=== PATIENT | male | born 1985 | race Caucasian/White ===

== ENCOUNTER 2020-08-19 17:55 | Inpatient (IN) ==
[2020-08-19] MEDS ORDERED: *HR* Heparin 10,000 UNIT/10 ML VIAL ONE ×2 (17:59→19:23)
[2020-08-19] MEDS ORDERED: ISOVUE-370 200 ML INFUS..BTL ONE ×3 (17:59→19:53)
[2020-08-19] MEDS ORDERED: Nitroglycerin 1,000 MCG/10 ML VIAL IV ONE ×2 (17:59→19:23)
[2020-08-19] MEDS ORDERED: *HR* Metoprolol 5 MG/5 ML VIAL IVP ONE ×4 (17:59→23:04)
[2020-08-19] MEDS ORDERED: 0.9 % Sodium Chloride 2,000 ML ONE ×2 (17:59→19:23)
[2020-08-19] MEDS ORDERED: Heparin 1,000 UNITS/500 mL 500 ML ONE ×3 (17:59→20:10)
[2020-08-19] MEDS ORDERED: 0.9 % Sodium Chloride 1,000 ML ONE (18:04)
[2020-08-19 18:14] LABS: Basophils % 0.1 %; Hematocrit 45.3 % (37.5-50.1); Hemoglobin 15.3 g/dL (12.9-16.9); Immature Granulocytes % 0.5 % (0-4); Lymphocytes % 6.9 %; Mean Corpuscular HGB Conc 33.8 g/dL (31.6-35.5); Mean Platelet Volume 10.7 fL (9.4-12.4); Monocytes # 1.2 K/mcL (0.0-1.3); Monocytes % 8.5 %; Neutrophils # 12.1 K/mcL (1.6-8.9); Platelet Count 214 K/mcL (140-400); Red Blood Count 5.46 M/mcL (4.19-5.50); Red Cell Distribution Width 13.2 % (11.5-14.5); White Blood Count 14.4 K/mcL (4.3-11.1)
[2020-08-19] MEDS ORDERED: 0.9 % Sodium Chloride 1,000 ML IVC ONE (18:18)
[2020-08-19 18:39] LABS: BUN/Creatinine Ratio 13 (6-26); Blood Urea Nitrogen 14 mg/dL (6-20); Calcium 9.6 mg/dL (8.6-10.3); Carbon Dioxide 27 mEq/L (23-29); Chloride 98 mEq/L (98-107); Glucose 167 mg/dL (70-105); Osmolality,Calculated 286 (280-300); Potassium 3.3 mEq/L (3.5-5.1); Sodium 136 mEq/L (136-145); eGFR For African Americans > 60 (> 60); eGFR For Non-African Americans > 60 (> 60)
[2020-08-19] MEDS ORDERED: Aspirin 81 MG TAB.CHEW PO ONE (18:39)
[2020-08-19] MEDS ORDERED: *HR* Heparin 5,000 UNIT/ML VIAL IVP PRN ×2 (18:40)
[2020-08-19] MEDS ORDERED: *HR* Heparin 5,000 UNIT/ML VIAL IVP ONE (18:40)
[2020-08-19] MEDS ORDERED: Heparin 25,000UNIT/250ML 1/2NS 25,000 UNIT/250 ML IV.SOLN IVC SCH (18:45)
[2020-08-19 18:55] LABS: D-Dimer 529 ng/mLFEU (0-500)
[2020-08-19 18:59] LABS: Heparin anti-factor XA UFH < 0.04 IU/mL (0.30-0.70); INR 1.4; Prothrombin Time 15.7 Seconds (9.4-12.1)
[2020-08-19] MEDS ORDERED: *HR* Midazolam HCl 2 MG/2 ML VIAL ONE (19:47)
[2020-08-19] MEDS ORDERED: *HR* FentaNYL (PF) 100 MCG/2 ML VIAL ONE (19:47)
[2020-08-19] MEDS ORDERED: Tirofiban 12.5 MG/250ML 12.5 MG/250 ML BAG ONE (19:57)
[2020-08-19] MEDS ORDERED: Furosemide 40 MG/4 ML VIAL ONE (19:59)
[2020-08-19] MEDS ORDERED: niCARdipine 0 MG/0 ML MLS IVC ONE (20:13)
[2020-08-19] MEDS ORDERED: *HR* Nitroprusside 50 MG VIAL IVC ONE (20:14)
[2020-08-19] MEDS ORDERED: D5% in Water 250 ML ONE (20:14)
[2020-08-19] MEDS ORDERED: *HR* Ticagrelor 90 MG TABLET ONE (20:27)
[2020-08-19 20:46] LABS: Adenovirus Not Detected (Not Detect); Bordetella Pertussis Not Detected (Not Detect); Chlamydophila pneumoniae Not Detected (Not Detect); Coronavirus 229E Not Detected (Not Detect); Coronavirus HKU1 Not Detected (Not Detect); Coronavirus NL63 Not Detected (Not Detect); Coronavirus OC43 Not Detected (Not Detect); Human Metapneumovirus Not Detected (Not Detect); Human Rhinovirus/Enterovirus DETECTED (Not Detect); Influenza A Subtype 2009 H1 Not Detected (Not Detect); Influenza B Not Detected (Not Detect); Mycoplasma pneumoniae Not Detected (Not Detect); Parainfluenza Virus 1 Not Detected (Not Detect); Parainfluenza Virus 2 Not Detected (Not Detect); Parainfluenza Virus 3 Not Detected (Not Detect); Parainfluenza Virus 4 Not Detected (Not Detect); Respiratory Syncytial Virus Not Detected (Not Detect); SARS-CoV-2 Not Detected (Not Detect)
[2020-08-19] MEDS ORDERED: Perflutren Lipid Microsphere 1.3 ML in 0.9 % Sodium Chloride 8.7 ML IVP PRN (20:58)
[2020-08-19] MEDS ORDERED: Tirofiban 12.5 MG/250ML 12.5 MG/250 ML BAG IVC SCH (21:00)
[2020-08-19 21:48] LABS: Bilirubin,Urine Negative (Negative); Blood,Urine Negative (Negative); Clarity,Urine Clear (Clear); Color,Urine Colorless (Yellow); Glucose,Urine (UA) Normal (Normal); Ketones,Urine Negative (Negative); Leukocyte Esterase,Urine Negative (Negative); Nitrite,Urine Negative (Negative); Protein,Urine Negative (Neg-Trace); Specific Gravity,Urine 1.021 (1.010-1.025); Urobilinogen,Urine Normal (Normal)
[2020-08-19] MEDS ORDERED: *HR* LORazepam 2 MG/ML VIAL IVP ONE (21:56)
[2020-08-19] MEDS: GuaiFENesin/Codeine Oral Soln 5 ML UDC PO PRN (23:31)
[2020-08-20] MEDS ORDERED: *HR* FentaNYL (PF) 100 MCG/2 ML VIAL IVP ONE (00:36)
[2020-08-20] MEDS ORDERED: Acetaminophen IV 1,000 MG/100 ML BAG IVPB ONE (00:57)
[2020-08-20] MEDS ORDERED: cefTRIAXone 1,000 MG in 0.9 % Sodium Chloride Mini Bag 100 ML IVPB ONE (00:57)
[2020-08-20 01:33] LABS: ABG Base Excess 1 mEq/L (-2 to 3); ABG HCO3 23 mEq/L (21-27); ABG Oxygen Saturation 95 % (95-98); ABG PCO2 30 mmHg (35-45); ABG PH 7.49 pH Units (7.32-7.45); ABG PO2 66 mmHg (85-104); ABG TCO2 24 mEq/L (20-26)
[2020-08-20 02:12] LABS: Basophils % 0.1 %; Hematocrit 45.4 % (37.5-50.1); Hemoglobin 15.6 g/dL (12.9-16.9); Immature Granulocytes % 0.4 % (0-4); Lymphocytes # 0.9 K/mcL (0.6-4.6); Lymphocytes % 6.5 %; Mean Corpuscular HGB Conc 34.4 g/dL (31.6-35.5); Mean Corpuscular Hemoglobin 28.4 pg (28.0-33.3); Mean Corpuscular Volume 82.7 fL (83.0-100.0); Mean Platelet Volume 10.8 fL (9.4-12.4); Monocytes # 1.3 K/mcL (0.0-1.3); Platelet Count 237 K/mcL (140-400); Red Blood Count 5.49 M/mcL (4.19-5.50); Red Cell Distribution Width 13.1 % (11.5-14.5); White Blood Count 14.3 K/mcL (4.3-11.1)
[2020-08-20 02:21] LABS: BUN/Creatinine Ratio 15 (6-26); Blood Urea Nitrogen 13 mg/dL (6-20); Calcium 8.3 mg/dL (8.6-10.3); Carbon Dioxide 24 mEq/L (23-29); Chloride 99 mEq/L (98-107); Glucose 130 mg/dL (70-105); Osmolality,Calculated 278 (280-300); Potassium 3.8 mEq/L (3.5-5.1); Sodium 133 mEq/L (136-145); eGFR For African Americans > 60 (> 60); eGFR For Non-African Americans > 60 (> 60)
[2020-08-20] MEDS ORDERED: Isovue-370 500 ML BOTTLE IVP ONE (02:36)
[2020-08-20] MEDS: Doxycycline 100 MG in 0.9 % Sodium Chloride Mini Bag 100 ML IVPB SCH ×2 (05:18→17:57)
[2020-08-20 09:14] LABS: Albumin 3.4 g/dL (3.5-5.7); Albumin/Globulin Ratio 1.1 (1.1-2.2); Bilirubin,Direct 0.4 mg/dL (0.0-0.2); Bilirubin,Total 1.4 mg/dL (0.3-1.0); Chol/HDL Ratio 4.8 (0-4.9); Globulin 3.1 g/dL (2.4-3.5); Total Protein 6.5 g/dL (6.4-8.9)
[2020-08-20] MEDS ORDERED: Furosemide 40 MG/4 ML VIAL IVP ONE (09:14)
[2020-08-20] MEDS: *HR* Ticagrelor 90 MG TABLET PO SCH ×2 (09:15→21:07)
[2020-08-20] MEDS: Aspirin Enteric Coated 81 MG Tablet PO SCH (09:15)
[2020-08-20] MEDS ORDERED: *HR* Metoprolol 5 MG/5 ML VIAL IVP ONE (09:48)
[2020-08-20] MEDS ORDERED: lisinopriL 5 MG TABLET PO SCH (11:00)
[2020-08-20] MEDS ORDERED: Perflutren Lipid Microsphere 1.3 ML in 0.9 % Sodium Chloride 8.7 ML IVP PRN (11:07)
[2020-08-20] MEDS: Furosemide 20 MG/2 ML VIAL IVP SCH ×2 (11:22→21:06)
[2020-08-20 14:14] LABS: INR 1.5; Prothrombin Time 16.8 Seconds (9.4-12.1)
[2020-08-20] MEDS ORDERED: *HR* Warfarin 5 MG TABLET PO ONE (18:00)
[2020-08-20] MEDS ORDERED: Warfarin perPT PO PRN (18:00)
[2020-08-20] MEDS: *HR* Enoxaparin 80 MG/0.8 ML SYRINGE SQ SCH (18:38)
[2020-08-21] MEDS: Doxycycline 100 MG in 0.9 % Sodium Chloride Mini Bag 100 ML IVPB SCH ×2 (04:53→18:52)
[2020-08-21] MEDS: *HR* Enoxaparin 80 MG/0.8 ML SYRINGE SQ SCH ×2 (04:55→18:53)
[2020-08-21 05:10] LABS: VBG Ionized Calcium 1.02 mmol/L (1.15-1.35)
[2020-08-21 05:15] LABS: Basophils % 0.2 %; Eosinophils % 0.1 %; Hematocrit 41.2 % (37.5-50.1); Hemoglobin 14.2 g/dL (12.9-16.9); Immature Granulocytes % 0.2 % (0-4); Lymphocytes # 1.5 K/mcL (0.6-4.6); Lymphocytes % 14.4 %; Mean Corpuscular HGB Conc 34.5 g/dL (31.6-35.5); Mean Corpuscular Hemoglobin 28.4 pg (28.0-33.3); Mean Corpuscular Volume 82.4 fL (83.0-100.0); Mean Platelet Volume 10.9 fL (9.4-12.4); Monocytes # 0.9 K/mcL (0.0-1.3); Monocytes % 8.5 %; Platelet Count 239 K/mcL (140-400); Red Cell Distribution Width 13.2 % (11.5-14.5); Segmented Neutrophils % 76.6 %; White Blood Count 10.4 K/mcL (4.3-11.1)
[2020-08-21 05:17] LABS: INR 1.5; Prothrombin Time 17.6 Seconds (9.4-12.1)
[2020-08-21 05:35] LABS: Alanine Aminotransferase 21 Units/L (7-52); Albumin 3.3 g/dL (3.5-5.7); Albumin/Globulin Ratio 0.9 (1.1-2.2); Alkaline Phosphatase 61 Units/L (34-104); Aspartate Amino Transferase 28 Units/L (13-39); BUN/Creatinine Ratio 19 (6-26); Bilirubin,Total 1.1 mg/dL (0.3-1.0); Blood Urea Nitrogen 15 mg/dL (6-20); Calcium 8.7 mg/dL (8.6-10.3); Carbon Dioxide 27 mEq/L (23-29); Chloride 97 mEq/L (98-107); Globulin 3.5 g/dL (2.4-3.5); Glucose 122 mg/dL (70-105); Magnesium 1.8 mg/dL (1.6-2.6); Osmolality,Calculated 282 (280-300); Phosphorous 1.8 mg/dL (2.7-4.5); Sodium 135 mEq/L (136-145); Total Protein 6.8 g/dL (6.4-8.9); eGFR For African Americans > 60 (> 60); eGFR For Non-African Americans > 60 (> 60)
[2020-08-21] MEDS ORDERED: Potassium Chloride Elixir 20 MEQ/15 ML UDC PO ONE ×2 (05:55→12:00)
[2020-08-21] MEDS: Calcium Gluconate 1gm/50mL 1 GM/50 ML BAG IVPB SCH ×2 (06:12→08:15)
[2020-08-21] MEDS: carvediloL 6.25 MG TABLET PO SCH ×2 (08:15→18:46)
[2020-08-21] MEDS: cefTRIAXone 1,000 MG in Water for inj. (sterile) 10 ML IVP SCH (08:16)
[2020-08-21] MEDS: *HR* Ticagrelor 90 MG TABLET PO SCH ×2 (08:16→20:43)
[2020-08-21] MEDS: Aspirin Enteric Coated 81 MG Tablet PO SCH (08:16)
[2020-08-21] MEDS: Sacubitril/Valsartan 24/26 MG 1 TABLET PO SCH ×2 (08:18→20:05)
[2020-08-21] MEDS: Furosemide 20 MG/2 ML VIAL IVP SCH ×2 (08:41→20:43)
[2020-08-21] MEDS ORDERED: lisinopriL 5 MG TABLET PO SCH (09:00)
[2020-08-21] MEDS ORDERED: Morphine Sulfate 2 MG/ML SYRINGE IVP ONE (09:09)
[2020-08-21] MEDS: Pantoprazole 40 MG VIAL IVP SCH (11:38)
[2020-08-21] MEDS: Colchicine 0.6 MG TABLET PO SCH ×2 (11:38→20:43)
[2020-08-21 14:50] LABS: Troponin I 11.43 ng/mL (< 0.04)
[2020-08-21] MEDS ORDERED: *HR* Warfarin 5 MG TABLET PO ONE (18:00)
[2020-08-22] MEDS: Sacubitril/Valsartan 24/26 MG 1 TABLET PO SCH ×2 (01:19→12:06)
[2020-08-22 04:53] LABS: INR 2.1; Prothrombin Time 23.9 Seconds (9.4-12.1)
[2020-08-22] MEDS: Doxycycline 100 MG in 0.9 % Sodium Chloride Mini Bag 100 ML IVPB SCH (06:50)
[2020-08-22] MEDS: *HR* Enoxaparin 80 MG/0.8 ML SYRINGE SQ SCH (06:51)
[2020-08-22 09:00] LABS: BUN/Creatinine Ratio 19 (6-26); Blood Urea Nitrogen 16 mg/dL (6-20); Calcium 8.7 mg/dL (8.6-10.3); Carbon Dioxide 26 mEq/L (23-29); Chloride 99 mEq/L (98-107); Glucose 119 mg/dL (70-105); Osmolality,Calculated 282 (280-300); Potassium 3.2 mEq/L (3.5-5.1); Sodium 135 mEq/L (136-145); eGFR For African Americans > 60 (> 60); eGFR For Non-African Americans > 60 (> 60)
[2020-08-22] MEDS: *HR* Ticagrelor 90 MG TABLET PO SCH ×2 (09:11→20:49)
[2020-08-22] MEDS: Aspirin Enteric Coated 81 MG Tablet PO SCH (09:11)
[2020-08-22] MEDS: Colchicine 0.6 MG TABLET PO SCH (09:11)
[2020-08-22] MEDS: Pantoprazole 40 MG VIAL IVP SCH (09:12)
[2020-08-22] MEDS: Furosemide 20 MG/2 ML VIAL IVP SCH (09:12)
[2020-08-22] MEDS: cefTRIAXone 1,000 MG in Water for inj. (sterile) 10 ML IVP SCH (09:12)
[2020-08-22] MEDS ORDERED: *HR* Warfarin 2.5 MG TABLET PO ONE (18:00)
[2020-08-22] MEDS ORDERED: Metoprolol XL (24 HR) Succ 25 MG TAB.ER.24H PO SCH (21:00)
[2020-08-23 00:37] LABS: Hematocrit 41.6 % (37.5-50.1); Hemoglobin 14.1 g/dL (12.9-16.9); Mean Corpuscular HGB Conc 33.9 g/dL (31.6-35.5); Mean Corpuscular Hemoglobin 27.8 pg (28.0-33.3); Mean Corpuscular Volume 82.1 fL (83.0-100.0); Mean Platelet Volume 10.4 fL (9.4-12.4); Platelet Count 254 K/mcL (140-400); Red Blood Count 5.07 M/mcL (4.19-5.50); Red Cell Distribution Width 13.3 % (11.5-14.5); White Blood Count 10.3 K/mcL (4.3-11.1)
[2020-08-23 00:51] LABS: INR 3.1; Prothrombin Time 35.1 Seconds (9.4-12.1)
[2020-08-23 00:58] LABS: Alanine Aminotransferase 25 Units/L (7-52); Albumin 3.3 g/dL (3.5-5.7); Albumin/Globulin Ratio 0.9 (1.1-2.2); Alkaline Phosphatase 64 Units/L (34-104); Aspartate Amino Transferase 28 Units/L (13-39); BUN/Creatinine Ratio 16 (6-26); Bilirubin,Direct 0.2 mg/dL (0.0-0.2); Bilirubin,Indirect 0.4 mg/dL (0.0-1.0); Bilirubin,Total 0.6 mg/dL (0.3-1.0); Blood Urea Nitrogen 14 mg/dL (6-20); Carbon Dioxide 24 mEq/L (23-29); Chloride 102 mEq/L (98-107); Globulin 3.6 g/dL (2.4-3.5); Glucose 105 mg/dL (70-105); Magnesium 1.9 mg/dL (1.6-2.6); Osmolality,Calculated 281 (280-300); Phosphorous 2.4 mg/dL (2.7-4.5); Potassium 3.7 mEq/L (3.5-5.1); Sodium 135 mEq/L (136-145); Total Protein 6.9 g/dL (6.4-8.9); eGFR For African Americans > 60 (> 60); eGFR For Non-African Americans > 60 (> 60)
[2020-08-23] MEDS ORDERED: Acetaminophen 325 MG TABLET PO PRN (01:59)
[2020-08-23] MEDS: GuaiFENesin/Codeine Oral Soln 5 ML UDC PO PRN (02:49)
[2020-08-23] MEDS: Sacubitril/Valsartan 24/26 MG 1 TABLET PO SCH ×2 (02:51→11:55)
[2020-08-23] MEDS: *HR* Ticagrelor 90 MG TABLET PO SCH (08:53)
[2020-08-23] MEDS: Aspirin Enteric Coated 81 MG Tablet PO SCH (08:54)
[2020-08-23] MEDS: cefTRIAXone 1,000 MG in Water for inj. (sterile) 10 ML IVP SCH (08:55)
[2020-08-23] MEDS: Pantoprazole 40 MG VIAL IVP SCH (08:56)
[2020-08-23] MEDS ORDERED: Furosemide 20 MG TABLET PO SCH (09:00)
[2020-08-23] MEDS ORDERED: Colchicine 0.6 MG TABLET PO SCH ×2 (09:00→21:00)
[2020-08-23] MEDS ORDERED: Metoprolol XL (24 HR) Succ 25 MG TAB.ER.24H PO SCH (09:00)
[2020-08-23 11:00] VITALS: BP 103/72
== END 2020-08-23 13:07 | disposition home or self-care (01) | DRG 174 ==
LOC: ICNU 17:55 → EMEROOARM 17:55 → ICNU 19:39 → SUATTDRO 21:26 → 2NNU 08-21 12:20
PROVIDERS: ADMIT Internal Medicine Cardiovascular Disease; ATTEND Internal Medicine

== ENCOUNTER 2020-08-24 17:54 | Observation (INO) ==
[2020-08-24 19:08] LABS: INR 3.5; Prothrombin Time 39.4 Seconds (9.4-12.1)
[2020-08-24 19:10] LABS: Basophils % 0.3 %; Eosinophils # 0.3 K/mcL (0.0-0.6); Eosinophils % 2.8 %; Hematocrit 41.1 % (37.5-50.1); Immature Granulocytes % 0.4 % (0-4); Lymphocytes # 1.6 K/mcL (0.6-4.6); Lymphocytes % 13.9 %; Mean Corpuscular HGB Conc 32.8 g/dL (31.6-35.5); Mean Corpuscular Hemoglobin 27.6 pg (28.0-33.3); Mean Corpuscular Volume 83.9 fL (83.0-100.0); Mean Platelet Volume 10.1 fL (9.4-12.4); Monocytes # 1.1 K/mcL (0.0-1.3); Monocytes % 9.4 %; Neutrophils # 8.6 K/mcL (1.6-8.9); Platelet Count 320 K/mcL (140-400); Red Cell Distribution Width 13.3 % (11.5-14.5); Segmented Neutrophils % 73.2 %; White Blood Count 11.8 K/mcL (4.3-11.1)
[2020-08-24 19:11] LABS: Activated Partial Thrombo Time 38.9 Seconds (26.0-36.0); Hemoglobin 13.5 g/dL (12.9-16.9)
[2020-08-24 19:23] LABS: BUN/Creatinine Ratio 15 (6-26); Blood Urea Nitrogen 12 mg/dL (6-20); Calcium 8.4 mg/dL (8.6-10.3); Carbon Dioxide 24 mEq/L (23-29); Chloride 100 mEq/L (98-107); Glucose 99 mg/dL (70-105); Osmolality,Calculated 276 (280-300); Potassium 3.4 mEq/L (3.5-5.1); Sodium 133 mEq/L (136-145); eGFR For African Americans > 60 (> 60); eGFR For Non-African Americans > 60 (> 60)
[2020-08-24 19:30] LABS: Troponin I 3.97 ng/mL (< 0.04)
[2020-08-24] MEDS ORDERED: Ondansetron 4 MG/2 ML VIAL IVP PRN (21:35)
[2020-08-24] MEDS ORDERED: Naloxone 0.4 MG/ML INJ IVP PRN (21:35)
[2020-08-24] MEDS: Sacubitril/Valsartan 24/26 MG 1 TABLET PO SCH (22:18)
[2020-08-24] MEDS: *HR* Ticagrelor 90 MG TABLET PO SCH (22:18)
[2020-08-24] MEDS ORDERED: Nitroglycerin 0.4 MG TAB.SUBL SL PRN (22:20)
[2020-08-25 05:29] LABS: Basophils % 0.2 %; Eosinophils # 0.3 K/mcL (0.0-0.6); Eosinophils % 2.4 %; Hematocrit 39.6 % (37.5-50.1); Hemoglobin 13.1 g/dL (12.9-16.9); Immature Granulocytes % 0.5 % (0-4); Lymphocytes # 1.7 K/mcL (0.6-4.6); Lymphocytes % 15.1 %; Mean Corpuscular HGB Conc 33.1 g/dL (31.6-35.5); Mean Corpuscular Hemoglobin 27.5 pg (28.0-33.3); Monocytes # 0.9 K/mcL (0.0-1.3); Monocytes % 8.6 %; Platelet Count 309 K/mcL (140-400); Red Blood Count 4.77 M/mcL (4.19-5.50); Red Cell Distribution Width 13.4 % (11.5-14.5); Segmented Neutrophils % 73.2 %
[2020-08-25 05:48] LABS: Prothrombin Time 44.9 Seconds (9.4-12.1)
[2020-08-25 05:50] LABS: BUN/Creatinine Ratio 19 (6-26); Blood Urea Nitrogen 15 mg/dL (6-20); Calcium 8.5 mg/dL (8.6-10.3); Carbon Dioxide 27 mEq/L (23-29); Chloride 103 mEq/L (98-107); Glucose 105 mg/dL (70-105); Osmolality,Calculated 285 (280-300); Potassium 3.7 mEq/L (3.5-5.1); Sodium 137 mEq/L (136-145); eGFR For African Americans > 60 (> 60); eGFR For Non-African Americans > 60 (> 60)
[2020-08-25 07:11] VITALS: BP 104/68
[2020-08-25] MEDS: *HR* Ticagrelor 90 MG TABLET PO SCH (08:33)
[2020-08-25] MEDS: Sacubitril/Valsartan 24/26 MG 1 TABLET PO SCH (08:33)
[2020-08-25] MEDS ORDERED: Metoprolol XL (24 HR) Succ 25 MG TAB.ER.24H PO SCH (09:00)
[2020-08-25] MEDS ORDERED: Aspirin Enteric Coated 81 MG Tablet PO SCH (09:00)
[2020-08-25] MEDS ORDERED: Colchicine 0.6 MG TABLET PO SCH (09:00)
[2020-08-25] MEDS ORDERED: Warfarin perPT PO PRN (18:00)
== END 2020-08-25 11:13 | disposition home or self-care (01) ==
LOC: EMEROOARM 17:54 → 2ANU 17:54 → SUATTDRO 20:53 → 2ANU 21:34
PROVIDERS: ADMIT Internal Medicine; ATTEND Internal Medicine

== ENCOUNTER 2020-11-12 12:35 | Observation (INO) ==
[2020-11-12] MEDS ORDERED: 0.9 % Sodium Chloride 500 ML IVC ONE (12:38)
[2020-11-12 13:15] LABS: Basophils % 0.1 %; Eosinophils # 0.2 K/mcL (0.0-0.6); Eosinophils % 2.4 %; Hematocrit 45.3 % (37.5-50.1); Hemoglobin 14.7 g/dL (12.9-16.9); Immature Granulocytes % 0.1 % (0-4); Lymphocytes # 1.5 K/mcL (0.6-4.6); Lymphocytes % 20.9 %; Mean Corpuscular HGB Conc 32.5 g/dL (31.6-35.5); Mean Corpuscular Hemoglobin 28.3 pg (28.0-33.3); Mean Corpuscular Volume 87.3 fL (83.0-100.0); Mean Platelet Volume 10.6 fL (9.4-12.4); Monocytes # 0.6 K/mcL (0.0-1.3); Monocytes % 8.7 %; Neutrophils # 4.8 K/mcL (1.6-8.9); Platelet Count 177 K/mcL (140-400); Red Blood Count 5.19 M/mcL (4.19-5.50); Red Cell Distribution Width 14.5 % (11.5-14.5); Segmented Neutrophils % 67.8 %
[2020-11-12 13:26] LABS: INR 1.1; Prothrombin Time 12.4 Seconds (9.4-12.1)
[2020-11-12 13:42] LABS: BUN/Creatinine Ratio 14 (6-26); Blood Urea Nitrogen 14 mg/dL (6-20); Calcium 9.5 mg/dL (8.6-10.3); Carbon Dioxide 27 mEq/L (23-29); Chloride 102 mEq/L (98-107); Glucose 82 mg/dL (70-105); Osmolality,Calculated 286 (280-300); Potassium 3.8 mEq/L (3.5-5.1); Sodium 138 mEq/L (136-145); Troponin I < 0.03 ng/mL (< 0.04); eGFR For African Americans > 60 (> 60); eGFR For Non-African Americans > 60 (> 60)
[2020-11-12] MEDS ORDERED: Ondansetron 4 MG/2 ML VIAL IVP PRN (15:39)
[2020-11-12] MEDS ORDERED: Naloxone 0.4 MG/ML INJ IVP PRN (15:39)
[2020-11-12] MEDS ORDERED: Nitroglycerin 0.4 MG TAB.SUBL SL PRN (15:44)
[2020-11-12] MEDS: Sacubitril/Valsartan 24/26 MG 1 TABLET PO SCH (17:24)
[2020-11-12] MEDS ORDERED: *HR* Heparin 5,000 UNIT/ML VIAL SQ SCH (18:00)
[2020-11-12] MEDS: *HR* Ticagrelor 90 MG TABLET PO SCH (20:36)
[2020-11-12] MEDS ORDERED: Metoprolol XL (24 HR) Succ 25 MG TAB.ER.24H PO SCH (21:00)
[2020-11-13] MEDS ORDERED: Famotidine 20 MG/2 ML VIAL IVP ONE (00:47)
[2020-11-13] MEDS ORDERED: methylPREDNISolone 125 MG/2 ML VIAL IVP ONE (00:48)
[2020-11-13 00:58] LABS: Basophils % 0.4 %; Eosinophils # 0.2 K/mcL (0.0-0.6); Eosinophils % 2.8 %; Hematocrit 41.3 % (37.5-50.1); Hemoglobin 13.9 g/dL (12.9-16.9); Immature Granulocytes % 0.1 % (0-4); Lymphocytes # 2.1 K/mcL (0.6-4.6); Lymphocytes % 28.7 %; Mean Corpuscular HGB Conc 33.7 g/dL (31.6-35.5); Mean Corpuscular Hemoglobin 28.8 pg (28.0-33.3); Mean Corpuscular Volume 85.7 fL (83.0-100.0); Mean Platelet Volume 11.2 fL (9.4-12.4); Monocytes # 0.6 K/mcL (0.0-1.3); Monocytes % 7.7 %; Neutrophils # 4.3 K/mcL (1.6-8.9); Platelet Count 169 K/mcL (140-400); Red Blood Count 4.82 M/mcL (4.19-5.50); Red Cell Distribution Width 14.3 % (11.5-14.5); Segmented Neutrophils % 60.3 %; White Blood Count 7.2 K/mcL (4.3-11.1)
[2020-11-13 01:19] LABS: BUN/Creatinine Ratio 18 (6-26); Blood Urea Nitrogen 13 mg/dL (6-20); Calcium 9.1 mg/dL (8.6-10.3); Carbon Dioxide 25 mEq/L (23-29); Chloride 105 mEq/L (98-107); Glucose 105 mg/dL (70-105); Magnesium 1.9 mg/dL (1.6-2.6); Osmolality,Calculated 286 (280-300); Phosphorous 4.5 mg/dL (2.7-4.5); Potassium 3.4 mEq/L (3.5-5.1); Sodium 138 mEq/L (136-145); eGFR For African Americans > 60 (> 60); eGFR For Non-African Americans > 60 (> 60)
[2020-11-13 01:20] LABS: Troponin I < 0.03 ng/mL (< 0.04)
[2020-11-13] MEDS: Sacubitril/Valsartan 24/26 MG 1 TABLET PO SCH (02:50)
[2020-11-13] MEDS ORDERED: Regadenoson 0.4 MG/5 ML SYRINGE IVP ONE (08:18)
[2020-11-13] MEDS ORDERED: Aspirin Enteric Coated 81 MG Tablet PO SCH (09:00)
[2020-11-13] MEDS: *HR* Ticagrelor 90 MG TABLET PO SCH (09:26)
[2020-11-13] MEDS ORDERED: Potassium Chloride Elixir 20 MEQ/15 ML UDC PO ONE (10:11)
[2020-11-13 11:30] VITALS: BP 95/53
== END 2020-11-13 14:07 | disposition home or self-care (01) ==
LOC: 3BNU 12:35 → EMEROOARM 12:35 → SUATTDRO 14:34 → 3BNU 15:53
PROVIDERS: ADMIT Internal Medicine; ATTEND Registered Nurse

== ENCOUNTER 2021-02-05 12:45 | Observation (INO) ==
[2021-02-05 13:44] LABS: Basophils % 0.1 %; Eosinophils # 0.3 K/mcL (0.0-0.6); Eosinophils % 3.5 %; Hematocrit 46.2 % (37.5-50.1); Hemoglobin 15.8 g/dL (12.9-16.9); Immature Granulocytes % 0.1 % (0-4); Lymphocytes # 1.3 K/mcL (0.6-4.6); Lymphocytes % 18.7 %; Mean Corpuscular HGB Conc 34.2 g/dL (31.6-35.5); Mean Corpuscular Hemoglobin 29.3 pg (28.0-33.3); Mean Corpuscular Volume 85.6 fL (83.0-100.0); Mean Platelet Volume 11.4 fL (9.4-12.4); Monocytes # 0.5 K/mcL (0.0-1.3); Monocytes % 7.2 %; Platelet Count 176 K/mcL (140-400); Red Cell Distribution Width 13.2 % (11.5-14.5); Segmented Neutrophils % 70.4 %; White Blood Count 7.1 K/mcL (4.3-11.1)
[2021-02-05 13:52] LABS: Prothrombin Time 11.4 Seconds (9.4-12.1)
[2021-02-05 13:55] LABS: Activated Partial Thrombo Time 27.9 Seconds (26.0-36.0)
[2021-02-05 14:00] LABS: BUN/Creatinine Ratio 15 (6-26); Blood Urea Nitrogen 14 mg/dL (6-20); Calcium 9.6 mg/dL (8.6-10.3); Carbon Dioxide 25 mEq/L (23-29); Chloride 106 mEq/L (98-107); Glucose 104 mg/dL (70-105); Osmolality,Calculated 289 (280-300); Potassium 3.8 mEq/L (3.5-5.1); Sodium 139 mEq/L (136-145); Troponin I < 0.03 ng/mL (< 0.04); eGFR For African Americans > 60 (> 60); eGFR For Non-African Americans > 60 (> 60)
[2021-02-05] MEDS ORDERED: Ketorolac 15 MG/ML VIAL IVP ONE (16:23)
[2021-02-05] MEDS ORDERED: Aspirin 325 MG TABLET PO ONE (16:31)
[2021-02-05] MEDS ORDERED: Ondansetron ODT 4 MG TAB.RAPDIS SL PRN (17:32)
[2021-02-05] MEDS ORDERED: Naloxone 0.4 MG/ML INJ IVP PRN (17:32)
[2021-02-05] MEDS ORDERED: Nitroglycerin 0.4 MG TAB.SUBL SL PRN (17:53)
[2021-02-05 18:11] LABS: Adenovirus Not Detected (Not Detect); Bordetella Pertussis Not Detected (Not Detect); Chlamydophila pneumoniae Not Detected (Not Detect); Coronavirus 229E Not Detected (Not Detect); Coronavirus HKU1 Not Detected (Not Detect); Coronavirus NL63 Not Detected (Not Detect); Coronavirus OC43 Not Detected (Not Detect); Human Metapneumovirus Not Detected (Not Detect); Human Rhinovirus/Enterovirus Not Detected (Not Detect); Influenza A Subtype 2009 H1 Not Detected (Not Detect); Influenza B Not Detected (Not Detect); Mycoplasma pneumoniae Not Detected (Not Detect); Parainfluenza Virus 1 Not Detected (Not Detect); Parainfluenza Virus 2 Not Detected (Not Detect); Parainfluenza Virus 3 Not Detected (Not Detect); Parainfluenza Virus 4 Not Detected (Not Detect); Respiratory Syncytial Virus Not Detected (Not Detect); SARS-CoV-2 Not Detected (Not Detect)
[2021-02-05] MEDS: Metoprolol XL (24 HR) Succ 50 MG TAB.ER.24H PO SCH (21:49)
[2021-02-05] MEDS: *HR* Ticagrelor 90 MG TABLET PO SCH (21:49)
[2021-02-05] MEDS: Sacubitril/Valsartan 49/51 MG 1 TABLET PO SCH (22:54)
[2021-02-06 01:43] LABS: Basophils % 0.3 %; Eosinophils # 0.3 K/mcL (0.0-0.6); Eosinophils % 3.7 %; Hematocrit 43.3 % (37.5-50.1); Hemoglobin 14.9 g/dL (12.9-16.9); Immature Granulocytes % 0.1 % (0-4); Lymphocytes % 28.2 %; Mean Corpuscular HGB Conc 34.4 g/dL (31.6-35.5); Mean Corpuscular Hemoglobin 29.2 pg (28.0-33.3); Mean Corpuscular Volume 84.9 fL (83.0-100.0); Monocytes # 0.6 K/mcL (0.0-1.3); Monocytes % 8.1 %; Neutrophils # 4.2 K/mcL (1.6-8.9); Platelet Count 167 K/mcL (140-400); Red Cell Distribution Width 13.2 % (11.5-14.5); Segmented Neutrophils % 59.6 %
[2021-02-06 01:59] LABS: BUN/Creatinine Ratio 16 (6-26); Blood Urea Nitrogen 13 mg/dL (6-20); Calcium 9.4 mg/dL (8.6-10.3); Carbon Dioxide 26 mEq/L (23-29); Chloride 108 mEq/L (98-107); Glucose 98 mg/dL (70-105); Magnesium 1.9 mg/dL (1.6-2.6); Osmolality,Calculated 292 (280-300); Potassium 3.5 mEq/L (3.5-5.1); Sodium 141 mEq/L (136-145); eGFR For African Americans > 60 (> 60); eGFR For Non-African Americans > 60 (> 60)
[2021-02-06] MEDS: Metoprolol XL (24 HR) Succ 50 MG TAB.ER.24H PO SCH (07:52)
[2021-02-06] MEDS: Sacubitril/Valsartan 49/51 MG 1 TABLET PO SCH (07:52)
[2021-02-06] MEDS: *HR* Ticagrelor 90 MG TABLET PO SCH (07:52)
[2021-02-06] MEDS: (Dapagliflozin Propanediol [Farxiga] 10 MG Tablet) PO SCH ×2 (07:53→13:49)
[2021-02-06 08:55] LABS: C-Reactive Protein < 5 mg/L (Less than 10)
[2021-02-06] MEDS ORDERED: Spironolactone 25 MG TABLET PO SCH (09:00)
[2021-02-06] MEDS ORDERED: Aspirin Enteric Coated 81 MG Tablet PO SCH (09:00)
[2021-02-06 10:48] VITALS: BP 109/77; PULSE 69; TEMP 98; O2SAT 97
== END 2021-02-06 14:22 | disposition home or self-care (01) ==
LOC: EMEROOARM 12:45 → 3ANU 12:45
PROVIDERS: ADMIT Internal Medicine; ATTEND Internal Medicine